=== PATIENT | female | born 1990 | race Caucasian/White ===

== ENCOUNTER 2017-05-08 20:10 | Emergency (ER) | payer MEDICAID ==
[2017-05-08 20:47] LABS: BASOPHILS 0.1 % (0-2); EOSINOPHILS 0.4 % (0-7); HEMATOCRIT 39.6 % (36.0-48.0); HEMOGLOBIN 13.8 g/dL (12-16); IMMATURE GRANULOCYTES 0.2 % (0-5); LYMPHOCYTES 9.4 % (15-50); MCH 31.2 pg (26.0-34.0); MCHC 34.8 g/dL (31.0-37.0); MCV 89.4 fL (80.0-100.0); MEAN PLATELET VOLUME 10.7 fL (7.4-10.4); MONOCYTES 5.4 % (2-11); NEUTROPHILS 84.5 % (40-80); PLATELET COUNT 223 10x3/uL (130-400); RBC 4.43 10x6/uL (4.00-5.40); RDW 12.3 % (11.5-14.5); WBC 16.9 10x3/uL (4.8-10.8)
[2017-05-08 20:52] LABS: HCG SERUM NEGATIVE (NEGATIVE)
[2017-05-08 21:03] LABS: ALBUMIN 4.3 g/dL (3.4-5.0); ALKALINE PHOSPHATASE 95 U/L (46-116); ALT (SGPT) 14 U/L (10-68); CALC OSMOLALITY 279 mosm/kg (275-300); CALCIUM 9.4 mg/dL (8.5-10.1); CARBON DIOXIDE 25.5 mmol/L (21.0-32.0); CHLORIDE - SERUM 103 mmol/L (98-107); CREATININE - SERUM 0.7 mg/dL (0.6-1.3); GLUCOSE 91 mg/dL (74-106); POTASSIUM - SERUM 3.9 mmol/L (3.5-5.1); SODIUM 141 mmol/L (136-145); UREA NITROGEN 11 mg/dL (7-18); eGFR NON AFRICAN AMERICAN > 90 mL/min (90-120)
== END 2017-05-09 | disposition home or self-care (01) ==
LOC: D.ER 20:10
PROVIDERS: Emergency Medicine
DX: M25.50 Pain in unspecified joint (principal); F17.200 Nicotine dependence, unspecified, uncomplicated

== ENCOUNTER 2017-06-05 10:56 | Emergency (ER) | payer MEDICAID | END 2017-06-05 12:55 | disposition home or self-care (01) | LOC: D.ER 10:56 | DX: J02.9 Acute pharyngitis, unspecified (principal); M25.50 Pain in unspecified joint ==

== ENCOUNTER 2018-10-03 00:33 | Emergency (ER) | payer MEDICAID ==
[~2018-10-03] VITALS: Ht 167.6 cm; Wt 59.1 kg
[2018-10-03 00:41] VITALS: Ht 167.6 cm; Wt 59.1 kg
[2018-10-03] MEDS ORDERED: ULTRAM50 MG PO (00:57)
[2018-10-03 01:22] VITALS: BP 141/91
== END 2018-10-03 01:23 | disposition home or self-care (01) ==
LOC: D.ER 00:33
DX: M25.50 Pain in unspecified joint (principal); M06.9 Rheumatoid arthritis, unspecified; F17.200 Nicotine dependence, unspecified, uncomplicated

== ENCOUNTER 2018-10-11 17:45 | Emergency (ER) | payer MEDICAID ==
[~2018-10-11] VITALS: Ht 167.6 cm; Wt 54.5 kg
[~2018-10-11 17:45] MED LIST: ULTRAM50 MG PO
[2018-10-11 18:05] VITALS: Ht 167.6 cm; Wt 54.5 kg
[2018-10-11 18:57] LABS: BASOPHILS 0.3 % (0-2); EOSINOPHILS 0.9 % (0-7); HEMOGLOBIN 13.4 g/dL (12-16); IMMATURE GRANULOCYTES 0.2 % (0-5); LYMPHOCYTES 13.2 % (15-50); MCHC 33.5 g/dL (31.0-37.0); MCV 86.6 fL (80.0-100.0); MEAN PLATELET VOLUME 9.9 fL (7.4-10.4); MONOCYTES 6.7 % (2-11); NEUTROPHILS 78.7 % (40-80); RBC 4.62 10x6/uL (4.00-5.40); RDW 16.8 % (11.5-14.5); WBC 11.6 10x3/uL (4.8-10.8)
[2018-10-11 18:59] LABS: APPEARANCE CLEAR (CLEAR); BILIRUBIN NEGATIVE (NEGATIVE); COLOR YELLOW (YELLOW); GLUCOSE NEGATIVE (NEGATIVE); KETONE NEGATIVE (NEGATIVE); NITRITE NEGATIVE (NEGATIVE); PROTEIN TRACE mg/dL (NEGATIVE); UROBILINOGEN NORMAL (NORMAL)
[2018-10-11 19:00] LABS: BACTERIA FEW /hpf (NONE SEEN); RED CELLS - URINE 0-5 /hpf (0-5); WHITE CELLS - URINE 0-5 /hpf (0-5)
[2018-10-11 19:01] LABS: PLATELET COUNT 350 10x3/uL (130-400)
[2018-10-11 19:12] LABS: ALBUMIN 3.7 g/dL (3.4-5.0); ALKALINE PHOSPHATASE 86 U/L (46-116); ALT (SGPT) 22 U/L (10-68); BILIRUBIN - TOTAL 0.16 mg/dL (0.2-1.3); CALC OSMOLALITY 275 mosm/kg (275-300); CARBON DIOXIDE 26.4 mmol/L (21.0-32.0); CHLORIDE - SERUM 102 mmol/L (98-107); CREATININE - SERUM 0.6 mg/dL (0.6-1.3); GLUCOSE 94 mg/dL (74-106); LIPASE 186 U/L (73-393); POTASSIUM - SERUM 3.9 mmol/L (3.5-5.1); PROTEIN - SERUM 8.2 g/dL (6.4-8.2); SODIUM 139 mmol/L (136-145); UREA NITROGEN 6 mg/dL (7-18); eGFR NON AFRICAN AMERICAN > 90 mL/min (90-120)
[2018-10-11] MEDS ORDERED: FLAGYL500 MG PO (21:06)
[2018-10-11] MEDS ORDERED: PROBIOTIC BLEN1 EACH PO (21:06)
[2018-10-11 23:25] VITALS: BP 124/76
== END 2018-10-11 23:24 | disposition home or self-care (01) ==
LOC: D.ER 17:45
PROVIDERS: Family Medicine
DX: K52.9 Noninfective gastroenteritis and colitis, unspecified (principal); R11.2 Nausea with vomiting, unspecified; R10.31 Right lower quadrant pain; F17.200 Nicotine dependence, unspecified, uncomplicated

== ENCOUNTER 2019-10-09 18:50 | Emergency (ER) | payer MEDICAID ==
[~2019-10-09] VITALS: Ht 167.6 cm; Wt 60.0 kg
[~2019-10-09 18:50] MED LIST changes: +FLAGYL500 MG PO; +PROBIOTIC BLEN1 EACH PO
[2019-10-09 19:16] VITALS: Ht 167.6 cm; Wt 60.0 kg
[2019-10-09] MEDS ORDERED: BUPROPION HCL100 M1 PO (20:01)
[2019-10-09] MEDS ORDERED: VISTARIL25 MG PO (20:01)
[2019-10-09] MEDS ORDERED: KLONOPIN1 MG PO (20:01)
[2019-10-09] MEDS ORDERED: ZPAK PO (20:12)
[2019-10-09 20:17] VITALS: BP 118/74
--- NOTE | 2019-10-10 01:52 | NUR ---
DR GUILLEN NOTIFIED AND REVIEWED PT's BEHAVIOR AND ASSESSMENT RESULTS. PT IS A LOW RISK PER DR GUILLEN. DR GUILLEN STATED TO GIVE RESOURCES TO PT AT TIME OF DISCHARGE. NO FURTHER ORDERS AT THIS TIME. RESOURCES REVIEWED WITH PT AND SHE VERBALIZED UNDERSTANDING.
== END 2019-10-09 20:16 | disposition home or self-care (01) ==
LOC: D.ER 18:50
DX: F31.9 Bipolar disorder, unspecified (principal); F41.9 Anxiety disorder, unspecified

== ENCOUNTER 2019-12-31 04:06 | Emergency (ER) | payer SELFPAY ==
[~2019-12-31] VITALS: Ht 167.6 cm; Wt 59.1 kg
[~2019-12-31 04:06] MED LIST changes: +BUPROPION HCL100 M1 PO; +KLONOPIN1 MG PO; +VISTARIL25 MG PO; +ZPAK PO
[2019-12-31 04:19] VITALS: Ht 167.6 cm; Wt 59.1 kg
[2019-12-31] MEDS ORDERED: HYDROCODON-ACE1 EA10 PO (04:41)
[2019-12-31 05:58] VITALS: BP 126/91
== END 2019-12-31 06:01 | disposition home or self-care (01) ==
LOC: D.ER 04:06
DX: S62.102A Fracture of unspecified carpal bone, left wrist, initial encounter for closed fracture (principal); M79.672 Pain in left foot; V00.131A Fall from skateboard, initial encounter; Y93.9 Activity, unspecified; Y92.9 Unspecified place or not applicable

== ENCOUNTER 2020-05-11 01:25 | Inpatient (IN) | payer SELFPAY ==
[~2020-05-11] VITALS: Ht 152.4 cm; Wt 59.1 kg
[~2020-05-11 01:25] MED LIST changes: +HYDROCODON-ACE1 EA10 PO
[2020-05-11 01:39] LABS: BASOPHILS 0.3 % (0-2); HEMATOCRIT 39.6 % (36.0-48.0); HEMOGLOBIN 13.2 g/dL (12-16); IMMATURE GRANULOCYTES 0.2 % (0-5); MCH 30.4 pg (26.0-34.0); MCHC 33.3 g/dL (31.0-37.0); MCV 91.2 fL (80.0-100.0); MEAN PLATELET VOLUME 9.7 fL (7.4-10.4); MONOCYTES 6.5 % (2-11); RBC 4.34 10x6/uL (4.00-5.40); RDW 12.9 % (11.5-14.5)
[2020-05-11 01:42] LABS: PLATELET COUNT 255 10x3/uL (130-400)
--- NOTE | 2020-05-11 02:00 | NUR ---
SPLINT APPLIED TO LEFT WRIST BY TI MICHELLE. DISTAL PULSES INTACT. WILL CONTINUE TO MONITOR.
[2020-05-11 02:01] LABS: APTT 31.6 SECONDS (22.8-39.4); INR 0.84 (0.85-1.17); PROTIME 11.5 SECONDS (11.6-15.0)
[2020-05-11 02:04] LABS: CALC OSMOLALITY 276 mosm/kg (275-300); CALCIUM 8.8 mg/dL (8.5-10.1); CARBON DIOXIDE 29.2 mmol/L (21.0-32.0); CHLORIDE - SERUM 102 mmol/L (98-107); CREATININE - SERUM 0.8 mg/dL (0.6-1.3); POTASSIUM - SERUM 3.6 mmol/L (3.5-5.1); SODIUM 137 mmol/L (136-145); UREA NITROGEN 16 mg/dL (7-18); eGFR NON AFRICAN AMERICAN 89 mL/min (90-120)
[2020-05-11 02:07] LABS: GLUCOSE 142 mg/dL (74-106)
[2020-05-11 02:10] LABS: ALBUMIN 3.8 g/dL (3.4-5.0); ALKALINE PHOSPHATASE 122 U/L (30-120); ALT (SGPT) 24 U/L (10-68); BILIRUBIN - TOTAL 0.23 mg/dL (0.2-1.3); PROTEIN - SERUM 7.2 g/dL (6.4-8.2)
[2020-05-11 02:20] LABS: HCG SERUM NEGATIVE (NEGATIVE)
[2020-05-11 02:50] VITALS: BP 130/76
--- NOTE | 2020-05-11 04:25 | NUR ---
PT FROM ER VIA STRETCHER, PT RESP EVEN AND UNLABORED NO DISTRESS NOTED, CL IN REACH, SR UP X 2.
[2020-05-11 04:30] VITALS: BP 119/64
[2020-05-11 04:45] VITALS: Ht 152.4 cm; Wt 59.1 kg
--- NOTE | 2020-05-11 07:30 | NUR ---
PT RECEIVED ASLEEP IN BED. ARM ELEVATED. IV INFUSING.
[2020-05-11 10:34] VITALS: BP 120/71
--- NOTE | 2020-05-11 11:47 | NUR ---
CONSENTS SIGNED, EKG IN CHART. PT IS SLEEPY BUT AROUSED TO VOICE. LEFT ARM SPLINT IN PLACE. NPO FOR SURGERY.
--- NOTE | 2020-05-11 13:11 | NUR ---
CALL RECEIVED AND PT NEG FOR COVID. SURGERY CALLED AND UPDATED.
[2020-05-11 16:17] VITALS: BP 113/63
--- NOTE | 2020-05-11 16:28 | NUR ---
JUST ARRIVED TO ROOM 2205 EASILY AROUSED WHEN NAME IS CALLED. RESP EVEN AND UNLABORED WITH NO DISTRESS NOTED. DRESSING INTACT TO LEFT WRIST WITH SLING NOTED. VITALS TAKEN PER PROTOCOL. C/L IN REACH AT BEDSIDE.
--- NOTE | 2020-05-11 17:47 | NUR ---
PT'S BELONGINGS BROUGHT OVER FROM ROOM 2127.
[2020-05-11 20:00] VITALS: BP 103/55
--- NOTE | 2020-05-11 20:00 | NUR ---
PT LYING IN BED WITHOUT DISTRESS, AOX4. IV RIGHT FA INFUSING D5NS @ 50. PT REQUESTED AND GIVEN SANDWICH AND APPLE JUICE. DENIES OTHER NEEDS AT THIS TIME. CL IN REACH, WILL CTM
--- NOTE | 2020-05-11 21:45 | NUR ---
WHILE THIS NURSE WAS ON THE PHONE, PT CAME OUT INTO HALLWAY CALLING OUT "NURSE". PT SAW ME AND APPROACHED THE DESK. I MOTIONED I WAS ON THE PHONE AND SAID JUST A MINUTE. SHE SAID NURSE SEVERAL TIMES AGAIN AND I POINTED TO THE PHONE. SHE SAID I NEED A NURSE NOW. I ASKED THE PERSON ON THE PHONE TO HOLD AND ASKED THE PATIENT WHAT SHE NEEDED. SHE STATES SHE IS HUNGRY AND NEEDS SOMEONE TO BRING HER FOOD. ASKED PT IF SHE USED HER CALL BUTTON, PT STATES YES. LOOKED AT CALL SYSTEM AND PT CALL LIGHT WAS NOT ON. ASKED PT TO STEP BACK TO HER ROOM SINCE SHE DID NOT HAVE A MASK ON AND I WOULD BRING HER SOMETHING IN A MINUTE. SHE WALKED A FEW FEET AWAY AND I BEGAN TALKING ON THE PHONE AGAIN AND SHE CAME BACK AND BEGAN STATING "IM HUNGRY" MULTIPLE TIMES IN FRONT OF ME WHILE I WAS SPEAKING ON THE PHONE. AT THAT TIME A NURSES AID WALKED BY AND I ASKED THEM TO ASSIST HER. HE GOT THE PT FOOD AND WALKED HER BACK TO HER ROOM.
--- NOTE | 2020-05-11 23:00 | NUR ---
PT CAME OUT INTO HALLWAY CALLING OUT NURSE. I CAME AROUND THE NURSES STATION AND ASKED WHAT SHE NEEDED, SHE STATED SHE WANTED PAIN MEDICINE. TOLD PT I WOULD BRING IT TO HER ROOM. WENT TO [facility] AND GOT PATIENTS ORDERED PERCOCET. BY THE TIME I GOT TO PTS ROOM, SHE HAD ALL HER BELONGINGS PACKED INTO BAGS AND WAS GETTING DRESSED. PT SAT ON BED AND WAITED FOR PAIN MED. AFTER SCANNING PT AND MED AND PLACING IT INTO MED CUP, I SAT IT DOWN ON THE TABLE FOR PT AND SHE SAID "WHAT DID YOU SAY THAT WAS" I SAID IT IS A PERCOCET. SHE SAID "DONT YOU HAVE SOMETHING IV YOU CAN GIVE ME" I SAID NO, THIS IS WHAT THE DR ORDERED. SHE SAID WELL I CANNOT SWALLOW A PILL. I ASKED WHY. SHE SAID HER THROAT WAS TOO SORE AND SHE WAS GOING TO HAVE TO HAVE SOMETHING IV. I TOLD HER SHE WOULD HAVE TO TRY THE PERCOCET, THAT IF SHE WAS GOING HOME SOON SHE WOULD NEED TO BE ON PO PAIN MED. PT AGAIN STATES HER THROAT IS TOO SORE TO TAKE A PILL. TOLD PT SHE WAS ABLE TO EAT HER DINNER TRAY AND MULTIPLE SANDWICH TRAYS WITH NO PROBLEM. PT GOT ANGRY AND SAID AGAIN I CANNOT TAKE A PILL AND I NEEDED TO CALL A DR AND THAT SHE WAS GOING TO SMOKE. I TOLD HER I COULD NOT LET HER LEAVE TO GO SMOKE BUT I WOULD CALL DR ABOUT PAIN MEDICATION AND NICOTINE PATCH. PT STATED "I DONT WANT A DAMN NICOTINE PATCH. IM GOING TO SMOKE EVEN IF I HAVE TO CHECK OUT" TOLD PT AGAIN SHE COULD NOT LEAVE WITH THE IV. SHE SAYS TAKE IT OUT AND I WILL LEAVE. TOLD PT THE RISKS OF LEAVING RIGHT AFTER SURGERY, THAT SHE WAS STILL GETTING IV ABX AND WOULD NOT HAVE A PRESCRIPTION FOR PAIN MED. PT STATES I WENT A MONTH WITH IT BROKEN AND DID NOT HAVE MEDS SO I WILL BE FINE. TOLD PT THERE WAS A PAPER TO SIGN IF SHE WAS GOING TO LEAVE. SHE STATES TO GO GET IT THEN BECAUSE SHE WAS LEAVING. LEFT ROOM TO GO SPEAK WITH RADIATOR CORE TESTER ABOUT SITUATION WHO AGREED SHE WAS NOT TO GO OUTSIDE WITH IV AND I WAS PAGING NURSE PRACTIONER MOUSE BREEDER TO LET HER KNOW TO SEE IF THERE WAS SOMETHING WE COULD DO FOR THE PT TO GET HER TO STAY, PT CAME OUT INTO HALLWAY ASKED WHERE THE PAPER WAS AND TO COME TAKE THE IV OUT. WHEN I WENT BACK TO ROOM PT WAS STANDING AT TABLE AND WAS TAKING THE PERCOCET I HAD PLACED IN THE MED CUP. SHE TURNED AROUND AND STUCK OUT HER ARM WITH THE IV. I TOOK THE IV OUT AND WENT AND GOT THE AMA PAPER. PT SIGNED. SHE VERBALIZED UNDESTANDING OF RISKS AND THAT SHE WAS LEAVING WITHOUT SPEAKING WITH A PHYSICIAN. SHE THEN ASKED WHAT HER POST OP INSTRUCTIONS ARE FOR THE ARM. I TOLD HER SHE WOULD HAVE GOT PO INSTRUCTIONS IF SHE STAYED TO BE DISCHARGED BUT THAT THE SURGEON HAS NOT GIVEN US ANY BECAUSE SHE IS CHOOSING TO LEAVE WITHOUT SPEAKING TO HIM. SHE STATED "FINE" AND BEGAN WALKING OFF. I STOPPED THE PT AND TOLD HER TO KEEP THE DRESSING CLEAN AND DRY. SHE ASKED IF SHE IS SUPPOSED TO TAKE IT OFF TOMORROW. I TOLD HER NO, SHE SHOULD KEEP IT ON. THAT SHE NEEDS TO GET BACK IN CONTACT WITH US IN THE NEXT FEW DAYS DURING THE DAY AND SET UP A FOLLOW UP APPT AND TO GET INSTRUCTIONS. SHE VERBALZIED UNDESTANDING. TOLD PT I WOULD TAKE HER TO ER TO MEET HER RIDE AND SHE SAID NO SHE COULD FIND THE WAY AND WALKED AWAY.
--- NOTE | 2020-05-13 09:12 | OP ---
PATIENT NAME: RICK VILLANUEVA MEDICAL RECORD: [id number] :89 LOCATION:[id number] ADMISSION DATE:05/11/20 SURGEON: LAURA JACOBO MD DATE OF OPERATION: 05/11/2020 PREOPERATIVE DIAGNOSES: 1. 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 2. Carpal tunnel syndrome - acute. POSTOPERATIVE DIAGNOSES: 1. 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 2. Carpal tunnel syndrome - acute. PROCEDURES: 1. Open reduction internal fixation of the left distal radius. 2. Application of synthetic bone graft to the left volar radius. 3. Carpal tunnel release. SURGEON: Laura Jacobo MD MEDICAID BILLING CLERK: GIL Larkin INTRAOPERATIVE COMPLICATIONS: Essentially none. IMPLANTS USED: VariAx 2. INDICATIONS: This 30-year-old female presented with a badly displaced distal radius fracture approximately 3 months ago. She did not follow up with orthopedics and ended up healing with a 45-degree apex volar and shortened distal radius. Evidently, she was skateboarding again and fell and had significant pain and noted to have a recurrent radial styloid fracture. Given the degree of displacement, she was then scheduled for open reduction and internal fixation with correction of the malunion deformity and stabilization of the new radial styloid fracture. After correction of the malunion deformity, there was a dorsal gap that was filled with BIO4 bone graft from [facility]. OPERATIVE SUMMARY IN DETAIL: After obtaining the appropriate preoperative orthopedic surgery consent as well as anesthetic consultation, evaluation and clearance, the patient was brought to the operating room and placed on table in supine position. After general laryngeal mask airway was administered, tourniquet was placed on the proximal aspect of the left upper extremity. Left upper extremity was then prepped and draped in routine sterile fashion. The arm was elevated and exsanguinated, tourniquet was inflated to 250 mmHg. At this point, the appropriate timeout was taken and agreed upon by all given the patient's unique identifiers. A curvilinear incision was made in line with Darek's volar approach. This was then taken down to the level of the proximal wrist. The transverse carpal ligament was dissected in its entirety, and after the canal was identified, [place] light knife was utilized to release the entire transverse carpal ligament. Further dissection was carried down. Attention was paid to retract the median nerve ulnarly as well as retracting the flexor carpal radialis to the distal side. The entire fracture was identified and the patient did indeed have adequate healing in a malunion position at the distal radius. Hand osteotomes as well as a small sagittal saw were used to recreate the fracture and then the plate was placed while holding the distal radius in almost a neutral position. The distal radius was placed distally OPERATIVE REPORT [id number] RICK VILLANUEVA first and then the plate itself was utilized to bring the wrist over into a more anatomical position. Serial and sequential drill and fill was done in a combination of both locking and nonlocking, again, under fluoroscopic guidance, while the wrist came back to slightly less than neutral, it did appear to be much improved from its 45-degree angulation. Radiographs were taken in AP and lateral planes. It did show the large defect in the dorsal cortex. At this point, a small incision was made directly over the defect. This was taken down between the extensor mechanism without violating the extensor retinaculum substantially and approximately 2.5 mL of the 5 mL prepared BIO4 graft was placed into the defect. Having completed this, final radiographs were taken on both AP and lateral planes and submitted for radiologist review. Wounds were irrigated. The dorsal of which was not irrigated because I did not want to displace any of the graft. They were closed with 2-0 Vicryl and 4-0 Prolene. A 3 x 12 volar splint was applied. Tourniquet was deflated. The patient was awakened, taken to recovery room in stable condition. It is of note that later in the evening, the patient left AMA. TRANSINT:[id number] Voice Confirmation ID: [id number] DOCUMENT ID: [id number] DONNELL MENDOSA, LAURA BADILLO at 0912 CC: [id number] DICTATION DATE: 05/12/20 1035 GLUE SPECIALTY SUPERVISOR: 05/12/20 2013 DIS IN 05/11/20 [facility] [address] [place] [address]
== END 2020-05-11 23:00 | disposition left against medical advice (07) | DRG 512 ==
LOC: D.ER 01:25 → D.M2 01:43 → D.MS 01:43 → D.M2 03:51 → D.MS 15:52
PROVIDERS: Family Medicine; Orthopaedic Surgery; ADMIT Emergency Medicine; ATTEND Emergency Medicine
PROC: 01N50ZZ Release Median Nerve, Open Approach (ICD-10-PCS; 2020-05-11)
PROC: 0PU Upper Bones, Supplement (ICD-10-PCS; 2020-05-11)
PROC: 0PSJ04Z Reposition Left Radius with Internal Fixation Device, Open Approach (ICD-10-PCS; principal; 2020-05-11 14:00)
DX: S52.502A Unspecified fracture of the lower end of left radius, initial encounter for closed fracture (principal); X58.XXXA Exposure to other specified factors, initial encounter; G56.02 Carpal tunnel syndrome, left upper limb; G40.909 Epilepsy, unspecified, not intractable, without status epilepticus; K21.9 Gastro-esophageal reflux disease without esophagitis; F31.9 Bipolar disorder, unspecified; F41.9 Anxiety disorder, unspecified; F15.10 Other stimulant abuse, uncomplicated; F12.10 Cannabis abuse, uncomplicated; Z86.73 Personal history of transient ischemic attack (TIA), and cerebral infarction without residual deficits

== ENCOUNTER 2020-06-25 15:55 | Emergency (ER) | payer SELFPAY ==
[~2020-06-25] VITALS: Ht 167.6 cm; Wt 54.5 kg
[2020-06-25 16:04] VITALS: BP 126/75; Ht 167.6 cm; Wt 54.5 kg
[2020-06-25 16:23] LABS: BASOPHILS 0.5 % (0-2); EOSINOPHILS 2.2 % (0-7); HEMOGLOBIN 13.8 g/dL (12-16); IMMATURE GRANULOCYTES 0.3 % (0-5); LYMPHOCYTES 29.2 % (15-50); MCH 30.7 pg (26.0-34.0); MCHC 34.5 g/dL (31.0-37.0); MCV 89.1 fL (80.0-100.0); MONOCYTES 9.3 % (2-11); NEUTROPHILS 58.5 % (40-80); RBC 4.49 10x6/uL (4.00-5.40); RDW 13.8 % (11.5-14.5); WBC 5.8 10x3/uL (4.8-10.8)
[2020-06-25 16:29] LABS: PLATELET COUNT 338 10x3/uL (130-400)
[2020-06-25 16:34] LABS: BILIRUBIN NEGATIVE (NEGATIVE); KETONE NEGATIVE (NEGATIVE); NITRITE NEGATIVE (NEGATIVE); UROBILINOGEN NORMAL (NORMAL)
[2020-06-25 16:35] LABS: HCG URINE NEGATIVE (NEGATIVE)
[2020-06-25 16:38] LABS: BACTERIA MANY /hpf (NONE SEEN); EPITHELIAL CELLS 0-5 /hpf (0-5); WHITE CELLS - URINE >50 /hpf (0-5)
[2020-06-25 16:39] LABS: CALC OSMOLALITY 270 mosm/kg (275-300); CALCIUM 8.6 mg/dL (8.5-10.1); CARBON DIOXIDE 30.6 mmol/L (21.0-32.0); CHLORIDE - SERUM 103 mmol/L (98-107); CREATININE - SERUM 0.6 mg/dL (0.6-1.3); POTASSIUM - SERUM 5.9 mmol/L (3.5-5.1); SODIUM 137 mmol/L (136-145); UREA NITROGEN 8 mg/dL (7-18); eGFR NON AFRICAN AMERICAN > 90 mL/min (90-120)
[2020-06-25 16:49] LABS: GLUCOSE 84 mg/dL (74-106)
[2020-06-25 16:51] LABS: ALBUMIN 3.1 g/dL (3.4-5.0); AMYLASE - SERUM 36 U/L (25-115); BILIRUBIN - TOTAL 3.01 mg/dL (0.2-1.3); LIPASE 191 U/L (73-393); PROTEIN - SERUM 7.6 g/dL (6.4-8.2)
[2020-06-25 16:56] LABS: ALKALINE PHOSPHATASE 426 U/L (30-120); ALT (SGPT) 2817 U/L (10-68); TROPONIN-I < 0.017 ng/mL (0.000-0.060)
== END 2020-06-25 19:20 | disposition left against medical advice (07) ==
LOC: D.ER 15:55
PROVIDERS: Family Medicine
DX: R10.9 Unspecified abdominal pain (principal); R74.8 Abnormal levels of other serum enzymes; K72.90 Hepatic failure, unspecified without coma; R11.2 Nausea with vomiting, unspecified; Z86.73 Personal history of transient ischemic attack (TIA), and cerebral infarction without residual deficits; K21.9 Gastro-esophageal reflux disease without esophagitis

== ENCOUNTER 2020-06-26 19:25 | Emergency (ER) | payer SELFPAY ==
[~2020-06-26] VITALS: Ht 167.6 cm; Wt 59.1 kg
[2020-06-26 19:30] VITALS: Ht 167.6 cm; Wt 59.1 kg
[2020-06-26 20:06] LABS: BASOPHILS 0.6 % (0-2); HEMATOCRIT 37.2 % (36.0-48.0); HEMOGLOBIN 12.9 g/dL (12-16); IMMATURE GRANULOCYTES 0.2 % (0-5); LYMPHOCYTES 17.5 % (15-50); MCH 30.4 pg (26.0-34.0); MCHC 34.7 g/dL (31.0-37.0); MCV 87.7 fL (80.0-100.0); MEAN PLATELET VOLUME 10.1 fL (7.4-10.4); MONOCYTES 9.1 % (2-11); NEUTROPHILS 70.6 % (40-80); RBC 4.24 10x6/uL (4.00-5.40); RDW 13.7 % (11.5-14.5); WBC 6.4 10x3/uL (4.8-10.8)
[2020-06-26 20:11] LABS: BILIRUBIN NEGATIVE (NEGATIVE); KETONE NEGATIVE (NEGATIVE); NITRITE NEGATIVE (NEGATIVE); RED CELLS - URINE OCC /hpf (0-5); UROBILINOGEN NORMAL (NORMAL); WHITE CELLS - URINE 25-50 /hpf (0-5)
[2020-06-26 20:11] LABS: PLATELET COUNT 248 10x3/uL (130-400)
[2020-06-26 20:12] LABS: BACTERIA MODERATE /hpf (NONE SEEN)
[2020-06-26 20:29] LABS: AMYLASE - SERUM 37 U/L (25-115); LIPASE 236 U/L (73-393); TROPONIN-I < 0.017 ng/mL (0.000-0.060)
[2020-06-26 20:34] LABS: UDS - AMPHET POSITIVE QUAL (NEGATIVE); UDS - BARB NEGATIVE QUAL (NEGATIVE); UDS - BENZO NEGATIVE QUAL (NEGATIVE); UDS - COCAINE NEGATIVE QUAL (NEGATIVE); UDS - OPIATE NEGATIVE QUAL (NEGATIVE); UDS - PCP NEGATIVE QUAL (NEGATIVE); UDS - THC NEGATIVE QUAL (NEGATIVE)
[2020-06-26 21:27] LABS: CALC OSMOLALITY 275 mosm/kg (275-300); CALCIUM 8.3 mg/dL (8.5-10.1); CARBON DIOXIDE 29.2 mmol/L (21.0-32.0); CHLORIDE - SERUM 102 mmol/L (98-107); CREATININE - SERUM 0.7 mg/dL (0.6-1.3); GLUCOSE 90 mg/dL (74-106); SODIUM 139 mmol/L (136-145); UREA NITROGEN 7 mg/dL (7-18); eGFR NON AFRICAN AMERICAN > 90 mL/min (90-120)
[2020-06-26 21:36] LABS: POTASSIUM - SERUM 4.1 mmol/L (3.5-5.1)
[2020-06-26 21:38] LABS: ALBUMIN 2.7 g/dL (3.4-5.0); ALKALINE PHOSPHATASE 379 U/L (30-120); PROTEIN - SERUM 6.2 g/dL (6.4-8.2)
[2020-06-26 21:40] LABS: ALT (SGPT) 2460 U/L (10-68)
--- NOTE | 2020-06-26 21:50 | NUR ---
DR. GUILLEN NOTIFIED AND REVIEWED PT'S BEHAVIOR AND ASSESSMENT RESULTS. PT IS A LOW RISK PER DR. GUILLEN. DR. GUILLEN STATED TO GIVE RESOURCES TO PT AT TIME OF DISCHARGE. NO FURTHER ORDER AT THIS TIME. RESOURCES REVIEWED WITH PT AND HE VERBALIZED UNDERSTANDING.
[2020-06-27 00:03] VITALS: BP 112/60
== END 2020-06-27 00:05 | disposition other institution (70) ==
LOC: D.ER 19:25
PROVIDERS: Family Medicine
DX: K72.00 Acute and subacute hepatic failure without coma (principal); R11.2 Nausea with vomiting, unspecified; R10.11 Right upper quadrant pain; Z86.73 Personal history of transient ischemic attack (TIA), and cerebral infarction without residual deficits; K21.9 Gastro-esophageal reflux disease without esophagitis